=== PATIENT | male | born 2005 | race Hispanic/Latino ===

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

== ENCOUNTER 2024-07-20 18:04 | Emergency (ER) | payer SELFPAY ==
[~2024-07-20] VITALS: Ht 172.7 cm; Wt 71.7 kg
--- NOTE | 2024-07-20 18:13 | ERN ---
ED Note History of Present Illness Stated Complaint: LEFT LEG INJURY Chief Complaint: Ankle Problem Time Seen by MD: 18:05 Time Seen by Midlevel: 18:05 Dictation: Mr. Johnson year old male with no reported chronic health issues who presented to the emergency department this evening for evaluation of ankle pain. He states he sustained a fall while playing soccer and now has pain and swelling of the lateral aspect of the left ankle. He reports pain with weight-bearing. He has good color, warmth, movement, and sensation to the left toes; capillary refill is brisk. He denies additional injury. He took ibuprofen earlier this morning. Allergies: Coded Allergies: No Known Allergies (Unverified Allergy, Unknown, 07/20/24) Past Medical History Past Medical History: No Pertinent History Surgical History: None PSYCH History: no pertinent psych hx Social History: Negative, Lives with family RN Note Reviewed/Agreed w/PFSH: Yes Review of System Dictation REVIEW OF SYSTEMS: CONSTITUTIONAL: Patient denies fevers, chills, sweats and weight changes. EYES: Patient denies any visual symptoms. EARS, NOSE, AND THROAT: No difficulties with hearing. No symptoms of rhinitis or sore throat. CARDIOVASCULAR: Patient denies chest pains, palpitations, orthopnea and paroxysmal nocturnal dyspnea. RESPIRATORY: No dyspnea on exertion, no wheezing or cough. GI: No nausea, vomiting, diarrhea, constipation, abdominal pain, hematochezia or melena. : No urinary hesitancy or dribbling. No nocturia or urinary frequency. No abnormal urethral discharge. MUSCULOSKELETAL: Reports pain with weight-bearing left ankle. Reports pain and swelling lateral aspect of left ankle. NEUROLOGIC: No chronic headaches, no seizures. Patient denies numbness, tingling or weakness. PSYCHIATRIC: Patient denies problems with mood disturbance. No problems with anx iety. ENDOCRINE: No excessive urination or excessive thirst. DERMATOLOGIC: Patient denies any rashes or skin changes. Initial Vital Sign VS Vital Signs Date Time Temp Pulse Resp B/P (MAP) Pulse Ox O2 Delivery O2 Flow Rate FiO2 07/20/24 18:06 98.4 87 16 121/69 98 Room Air 0 Physical Exam Dictation Vital signs: Reviewed. Afebrile Constitutional: No acute distress. Non-toxic appearing. Head/Face: Normocephalic, atraumatic. Eyes: Periorbital areas with no swelling, redness, or edema. Lids and lashes are normal. Conjunctival injection is absent. Sclera anicteric. Pupils equal, round, reactive to light. ENT: Pinnas intact and no signs of trauma or erythema. Ear canals clear and no discharge. TMs no erythema. No nasal discharge or bleeding noted. Oropharynx with no exudate, redness, swelling, masses, exudates, or evidence of obstruction. Uvula midline. Mucous membranes moist. Neck: Trachea midline, no masses palpated, and no cervical lymphadenopathy. No swelling. Supple, full range of motion. Chest/Axilla: No tenderness, no crepitus, no paradoxical movement, no retractions. Cardiovascular: Regular rate, regular rhythm, no murmur, no gallops. Symmetric pulses. No peripheral edema. Normotensive Respiratory: Respirations even and unlabored. Lung sounds clear; no wheezes, rales or rhonchi. Room air SpO2 100% Gastrointestinal: Inspection is normal. No distention is appreciated. Bowel sounds are normal. No mass or organomegaly . There is no tenderness. No rebound. No rigidity. No voluntary or involuntary guarding. No Kevin's sign. Neurological: Normal speech, gross motor function intact, gross sensory function intact. No focal weakness/Paresthesia. Musculoskeletal/Extremities: Symmetric pulses. Range of motion intact to left hip and knees. He has pain/swelling lateral aspect of the left ankle. He has good color, warmth, movement, and sensation to left toes. Capillary refill is brisk. Integumentary: Intact. Skin is normal color, warm and dry. Cap refill less than 2 seconds. Results (Laboratory/Radiology) X-RAY Comment: PATIENT: JULIEN JOHNSON MR#: [id number] : 2005 SEX: M AGE: 18 LOCATION: [facility] ORDER 07 STATUS: REG REPORT#: [id number] SERVICE 06 REASON: soccer injury; pain/swelling ORDERING PHYSICIAN: LAURITA WELLS NP PROCEDURE: [id number] - ANKLE COMP 3VWS LT LEFT ANKLE RADIOGRAPHS - 3 VIEWS INDICATION: Left ankle pain and swelling COMPARISON: None FINDINGS: AP, lateral, and oblique views. No fracture or dislocation identified. The talar dome is intact. Ankle mortise and tibial plafond are well maintained. No significant joint effusion is present. No radiopaque foreign body noted. IMPRESSION: No evidence for fracture or dislocation. DICTATED BY: ANGELICA PIMENTEL MD DATE: 07/20/241831 ELECTRONICALLY SIGNED BY: ANGELICA PIMENTEL MD DATE: 07/20/241835 ED Course ED Course Orders Procedure Category Date Status Time Hydrocodone/Apap PHA 07/20/24 Complete 5/325 (Farley 5/325mg) 18:30 Ankle Comp 3vws Lt RAD 07/20/24 Resulted 18:07 Apply Ice Pack To: CPOE 07/20/24 Transmitted (Er) 18:07 Current Medications Medications (Trade) Dose Ordered Sig/Jeremi Route PRN Reason Start Time Stop Time Status Last Admin Dose Admin Acetaminophen/ Hydrocodone Bitart (NORco 5/325MG) 1 tab ONCE ONCE PO 07/20/24 18:30 07/20/24 18:31 DC 07/20/24 18:25 Vital Signs Date Time Temp Pulse Resp B/P (MAP) Pulse Ox O2 Delivery O2 Flow Rate FiO2 07/20/24 18:06 98.4 87 16 121/69 98 Room Air 0 Full ED course. Vital signs stable; afebrile with room air SpO2 98%. Normotensive. X-ray of the left ankle negative for fracture or dislocation. He has good color, warmth, movement, and sensation to left toes. Capillary refill is less than 2 seconds. Ice pack was applied as well as Adam wrap. Instructed on use of crutches. He received dose Farley x1 for discomfort Medical Decision Making MDM MDM: Differential diagnosis: Ankle sprain, ankle fracture, ankle dislocation Rationale: Tests considered and ordered secondary to shared decision making include: X-ray Previous outside records reviewed: Old ER visits. Risk of complication and/or morbidity or mortality of patient management: None Medications-Per medication reconciliation Need for hospitalization: Patient does not meet criteria for hospitalization. Need for emergency major/minor surgery: No There are no social concerns with this patient. Prescription drug management: Ibuprofen Prescriptions will include symptomatic care Patient's prior external medical records from other ER visits were reviewed by me as indicated. Prior testing and results from previous visits were reviewed. Prior tests were taken into account with medical decision making and resource utilization, independent historian/historians were used to obtain complete medical history. I independently interpreted the test that were performed, results were reviewed by me and considered findings on radiology if ordered. Medical management and examination interpretation discussions were had by me with other qualified healthcare professionals as indicated for the patient's care. DX & DISP Disposition: Discharge Departure Impression: Primary Impression: Ankle sprain Condition: Stable Scripts Ibuprofen (Ibuprofen) 600 Mg Tablet 600 MG PO Q6H PRN for PAIN, #12 TAB 0 Refills Prov: LAURITA WELLS NP 07/20/24 Additional Instructions: Rest, ice, elevation, and compression/Adam wrap. Stay off of left ankle/non weightbearing as/use crutches. May take [id number] Tylenol or ibuprofen as needed for discomfort. Follow up with your primary care physician. Return to the emergency department for any worsening of symptoms or concerns Referrals: SELF,REFERRAL (PCP) Time of Disposition: 18:12 LAURITA WELLS NP Jul 20, 2024 18:12
[2024-07-20] MEDS: HYDROcodone/APAP 5/325 1 TAB TABLET PO ONE (18:25)
--- NOTE | 2024-07-20 18:36 | HMCIMG ---
LEFT ANKLE RADIOGRAPHS - 3 VIEWS INDICATION: Left ankle pain and swelling COMPARISON: None FINDINGS: AP, lateral, and oblique views. No fracture or dislocation identified. The talar dome is intact. Ankle mortise and tibial plafond are well maintained. No significant joint effusion is present. No radiopaque foreign body noted. IMPRESSION: No evidence for fracture or dislocation.
[2024-07-20] MEDS ORDERED: IBUP-2070 PO (19:00)
[2024-07-20 19:23] VITALS: BP 120/65; PULSE 80; RESP 16; TEMP 98.4; O2SAT 97
== END 2024-07-20 19:29 | disposition home or self-care (01) ==
LOC: EDH 18:04
DX: S93.492A Sprain of other ligament of left ankle, initial encounter (principal); W18.39XA Other fall on same level, initial encounter; Y93.66 Activity, soccer; Y92.89 Other specified places as the place of occurrence of the external cause; Y99.8 Other external cause status
CPT/HCPCS: 73610; 99283